=== PATIENT | male | born 1980 | race Caucasian/White ===

== ENCOUNTER 2024-05-10 13:31 | Emergency (ER) | payer OTHER, SELFPAY ==
[2024-05-10 13:38] VITALS: BP 119/94
[2024-05-10 13:58] LABS: % Basophils 1.2 % (0-2); % Eosinophils 1.6 % (0-6); % Immature Granulocytes 0.8 % (0-0.5); % Monocytes 9.5 % (1.7-9.3); % Neutrophils 66.9 % (42.2-75.2); Absolute Basophils 0.1 10^3/uL (0-0.2); Absolute Eosinophils 0.1 10^3/uL (0-0.7); Absolute Immature Granulocytes 0.1 10^3/uL (0-0.05); Absolute Lymphocytes 1.7 10^3/uL (1.2-3.4); Absolute Monocytes 0.8 10^3/uL (0.1-0.6); Absolute Neutrophils 5.5 10^3/uL (1.4-6.5); Hematocrit 40.4 % (39.0-52.0); Hemoglobin 13.9 g/dL (13.0-18.0); Mean Corp Hgb Conc. 34.4 g/dL (33.0-37.0); Mean Corpuscular Hgb 30.2 pg (27.0-31.0); Mean Corpuscular Volume 87.6 fL (80.0-94.0); Mean Platelet Volume 10.5 fL (7.4-10.4); Nucleated Red Blood Cells % 0 % (-); Platelet Count 226 10^3/uL (130-400); Red Blood Cell Count 4.61 10^6/uL (4.70-6.10); Red Cell Dist. Width 11.7 % (11.5-14.5); White Blood Cell Count 8.3 10^3/uL (4.8-10.8)
[2024-05-10 13:59] LABS: Urine Albumin Trace (Neg - Trace); Urine Bilirubin 1+ (Negative); Urine Character Clear (Clear); Urine Color Yellow; Urine Glucose Negative (Negative); Urine Ketone Negative (Negative); Urine Leukocyte Negative (Negative); Urine Nitrite Negative (Negative); Urine Occult Blood Trace (Negative); Urine Urobilinogen 1+ (Neg - 1+)
[2024-05-10 14:11] LABS: Urine Mucus Many
[2024-05-10 14:12] LABS: Urine Red Blood Cell 16-20 /HPF (0-2); Urine Urothelial Cell 0-2 /LPF (FEW)
[2024-05-10 14:13] LABS: Urine Bacteria Few (Negative)
[2024-05-10 14:50] LABS: ALT (SGPT) 43 U/L (0-50); AST (SGOT) 30 U/L (17-59); Albumin 4.2 g/dl (3.5-5.0); Alkaline Phosphatase 110 U/L (38-126); Blood Urea Nitrogen 25 mg/dl (9-20); Calcium 9.7 mg/dl (8.4-10.2); Carbon Dioxide 27 mmol/L (22-30); Chloride 105 mmol/L (98-107); Glucose 100 mg/dl (70-99); Potassium 4.1 mmol/L (3.5-5.1); Sodium 140 mmol/L (135-145); Total Bilirubin 0.8 mg/dl (0.2-1.3); eGFR > 60.00
--- NOTE | 2024-05-10 17:29 | ED.GENMED ---
History of Present Illness
General
Chief Complaint: Male Genito-Urinary Symptoms
Source: patient
Time Seen by Provider: 05/10/24 16:55
History of Present Illness
History of Present Illness:
44-year-old male who presents with right groin pain and pain in the right testicle. States this started about 4-5 days ago thought maybe he strained his groin. States that he was anti-inflammatories with minimal improvement but the pain continued
to get worse. Denies dysuria. Denies concern for sexually transmitted disease. No drainage from the penis. No vomiting. No back pain. No injury
Past History
Past History
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
Phy Exam
Physical Exam
Physical Exam:
CONSTITUTIONAL Vital signs reviewed, Patient alert and oriented to person, place and time. Well-appearing
HEAD atraumatic, normocephalic.
EYES eyelids normal to inspection, Extraocular muscles intact, Conjunctiva normal, Sclera normal.
NECK normal range of motion, Trachea midline, no jugular venous distention.
RESP no respiratory distress
BACK No obvious deformities
Abdomen soft, nontender, no hernias palpated.
penis normal, right testicle is indurated and and tender. No drainage from the penis. No palpable groin lymphadenopathy
UPPER EXTREMITY Gross Range of motion normal, gross motor strength normal
LOWER EXTREMITY Gross range of motion normal, Gross motor strength normal
NEURO Speech normal, No focal motor deficits include, Loy coma scale 15, Memory normal, Cranial Nerves intact to screening exam.
SKIN Skin warm, dry, and normal in color.
PSYCHIATRIC Patient oriented to person place and time, Normal affect.
Course
Orders/Labs/Results
Orders:
Orders
05/10/24 13:44
US Scrotum Urgent
Comment:
Reason For Exam: right testicular swelling and pain
05/10/24 13:53
Complete Blood Count/With Diff Urgent
Comprehensive Metabolic Panel Urgent
Urine Culture Reflexed from UA [Urinalysis Reflex To Culture] Urgent
Date Specimen was Collected: 05/10/24
Time Specimen was Collected: 13:41
Urine Microscopic Reflex Cult Urgent
05/10/24 17:26
Sulfamethox./Trimethoprim Ds [Bactrim Ds 800 mg/160 mg] 1 tablet PO NOW STA
Abnormal Lab Results
05/10/24
13:53
RBC 4.61 L 10^6/uL
(4.70-6.10)
MPV 10.5 H fL
(7.4-10.4)
Abs Immat Gran (auto) 0.1 H 10^3/uL
(0-0.05)
Absolute Monos (auto) 0.8 H 10^3/uL
(0.1-0.6)
Immature Gran % 0.8 H %
(0-0.5)
Lymphocytes % 20.0 L %
(20.5-51.1)
Monocytes % 9.5 H %
(1.7-9.3)
BUN 25 H mg/dl
(9-20)
Glucose 100 H mg/dl
(70-99)
Ur Occult Blood Reflex Trace A
(Negative)
Urine Bilirubin 1+ A
(Negative)
Urine RBC 16-20 A /HPF
(0-2)
Urine Bacteria (Reflex) Few A
(Negative)
05/10/24 13:53
05/10/24 13:53
Vital Signs
Initial and Last Documented VS:
Initial Vital Signs
Temp Pulse Resp BP Pulse Ox
98.3 F 72 18 119/94 98
05/10/24 13:38 05/10/24 13:38 05/10/24 13:38 05/10/24 13:38 05/10/24 13:38
Last Documented Vital Signs
Temp Pulse Resp BP Pulse Ox
98.3 F 72 18 119/94 98
05/10/24 13:38 05/10/24 13:38 05/10/24 13:38 05/10/24 13:38 05/10/24 13:38
MDM/Problems Addressed
Differential Diagnosis Includes:
Testicular torsion, epididymitis, orchitis, sexual transmitted disease, UTI, inguinal hernia
MDM/Problems Addressed:
Epididymoorchitis
*Radiology
Radiology exam reviewed: radiology read reviewed
*Pulse Oximetry
Patient hypoxic: no
*Critical Care Note
Total Time (30-74mins, 75-104mins- exclusive of procedures): Not Applicable
Data Reviewed
Source: patient
Patient Management
Escalation/DeEscalation of care consider admission/obs:
Cover with antibiotics, scrotal support and NSAIDs. Recommend outpatient urology and PCP follow-up.
ED Attending Note
-
Portions of this chart may have been created with voice recognition software.� Occasional wrong word or��sound alike� substitutions may have occurred due to the inherent limitations of voice recognition software.
Discharge Plan
Departure
Patient Disposition: Home (Routine Discharge)
Date of Disposition: 05/10/24
Time of Disposition: 17:30
Patient with high blood pressure during this ER visit?: Yes
Discharge Problem:
Acute epididymo-orchitis
Instructions: Epididymitis and orchitis, BLOOD PRESSURE
Prescriptions:
New
sulfamethoxazole-trimethoprim [Bactrim DS] 800-160 mg tablet
1 tab PO BID Qty: 20 0RF
Referrals:
Hosea Collado Jr., MD [Active] -
Albert Sánchez MD [Family Provider] -
Activity Restrictions/Additional Instructions:
Please wear tight fitting underwear as discussed. Use anti-inflammatories [id number] for the next 3 to 4 days. Please see your doctor or urology in follow-up in the next 3 to 5 days.
Interventions
Interventions:
*Risk Screen - Suicide Last Done: 05/10/24 13:38
*General Assessment Last Done: 05/10/24 13:38
*Neglect/Abuse Screening Last Done: 05/10/24 13:38
Discharge Date and Time
Print Language: LIBYAN
[2024-05-10] MEDS: BACTRIM DS 800 MG/160 MG 1 TABLET PO (17:36)
== END 2024-05-10 17:54 | disposition home or self-care (01) ==
LOC: EMR 13:31
PROVIDERS: Emergency Medicine; EMERGENCY PHYSICIAN Emergency Medicine; FAMILY PHYSICIAN Family Medicine
DX: N45.3 Epididymo-orchitis (principal); R10.31 Right lower quadrant pain; N50.811 Right testicular pain; R03.0 Elevated blood-pressure reading, without diagnosis of hypertension; K22.70 Barrett's esophagus without dysplasia
CPT/HCPCS: 99284; 76870; 80053; 81003; 81015; 85025; 93976